=== PATIENT | male | born 1990 ===

== ENCOUNTER 2017-10-30 18:59 | Emergency (ER) | payer MEDICAID, OTHER ==
[2017-10-30 19:15] VITALS: BP 140/79; PULSE 81; RESP 16; TEMP 99.3; O2SAT 97
--- NOTE | 2017-10-30 21:15 | ED PDOC ---
Lower Extremity Pain/Injury Time Seen by Provider: 10/30/17 20:29 Chief Complaint (Nursing): Trauma Chief Complaint (Provider): Left foot pain History Per: Patient History/Exam Limitations: no limitations Onset/Duration Of Symptoms: Hrs Current Symptoms Are (Timing): Still Present Additional Complaint(s): 27yo male comes to ER for evaluation of left foot pain after he stepped on a nail. Patient states the nail punctured through his work boot and punctured his foot. He states his tetanus vaccination is not up to date. Patient denies any other medical complaints. Past Medical History Reviewed: Historical Data, Nursing Documentation, Vital Signs Vital Signs: Last Vital Signs Temp 99.3 F 10/30/17 19:11 Pulse 81 10/30/17 19:11 Resp 16 10/30/17 19:11 BP 140/79 10/30/17 19:11 Pulse Ox 97 10/30/17 19:11 - Medical History PMH: No Chronic Diseases - Surgical History Surgical History: No Surg Hx - Family History Family History: States: No Known Family Hx - Home Medications Home Medications: Ambulatory Orders Medication Instructions Recorded Amoxicillin/Clavulanate [Augmentin 1 tab PO BID #20 tab 10/30/17 875 MG-125 MG] - Allergies Allergies/Adverse Reactions: Allergies Allergy/AdvReac Type Severity Reaction Status Date / Time No Known Allergies Allergy Verified 10/30/17 19:11 Review of Systems Musculoskeletal: Positive for: Foot Pain (left foot pain; stepped on nail) Physical Exam - Reviewed Nursing Documentation Reviewed: Yes Vital Signs Reviewed: Yes - Physical Exam Appears: Positive for: Non-toxic, No Acute Distress Extremity: Positive for: Normal ROM, Other (pucture wound noted to sole of lateral left foot. No active bleeding noted.). Negative for: Swelling Neurologic/Psych: Positive for: Alert, Oriented - ECG O2 Sat by Pulse Oximetry: 97 (RA) Pulse Ox Interpretation: Normal Medical Decision Making Medical Decision Making: Impression: Left foot pain s/p stepping on nail Plan: -- Adacel 0.5ml IM -- XR left foot x-ray without acute fracture or dislocation. Scribe Attestation: Documented by Patsy Sorenson acting as a scribe for KRISTIN Shook Provider Attestation: All medical record entries made by the Scribe were at my direction and personally dictated by me. I have reviewed the chart and agree that the record accurately reflects my personal performance of the history, physical exam, medical decision making, and the department course for this patient. I have also personally directed, reviewed, and agree with the discharge instructions and disposition. Disposition - Clinical Impression Clinical Impression: Puncture wound, Tetanus toxoid vaccination administered at current visit - Patient ED Disposition Is Patient to be Admitted: No Counseled Patient/Family Regarding: Diagnosis, Need For Followup, Rx Given - Disposition Disposition: Routine/Home Disposition Time: 21:48 Condition: GOOD Prescriptions: Amoxicillin/Clavulanate [Augmentin 875 MG-125 MG] 1 tab PO BID #20 tab Instructions: Puncture Wound (ED) Forms: [employer] (Emirati)
--- NOTE | 2017-10-31 11:22 | RAD ---
PROCEDURE: Left Foot Radiographs. HISTORY: nail in lateral left foot COMPARISON: None. FINDINGS: BONES: Bone alignment and mineralization are normal. There is no acute displaced fracture or bone destruction. JOINTS: Normal. SOFT TISSUES: Normal. OTHER FINDINGS: None. IMPRESSION: No acute fracture or dislocation. No radiopaque foreign body
== END 2017-10-30 21:57 | disposition home or self-care (01) ==
LOC: H.ER 18:59
DX: S91.331A Puncture wound without foreign body, right foot, initial encounter (principal); W45.0XXA Nail entering through skin, initial encounter; Y99.0 Civilian activity done for income or pay

== ENCOUNTER 2018-09-10 11:52 | Emergency (ER) | payer MEDICAID ==
[2018-09-10 12:09] VITALS: RESP 18; O2SAT 99
--- NOTE | 2018-09-10 13:19 | ED PDOC ---
HPI: Back Time Seen by Provider: 09/10/18 12:12 Chief Complaint (Nursing): Back Pain Chief Complaint (Provider): Back pain History Per: Patient History/Exam Limitations: no limitations Onset/Duration Of Symptoms: Other (since September 02 ) Current Symptoms Are (Timing): Still Present Exacerbating Factor(s): Movement Additional Complaint(s): 28 year old male presents to the ED for an evaluation of left sided mid-back pain since September 02. Patient states at that time, he was participating in an [employer] tournament. Currently, his symptoms worsen with movement and deep inspirations. Patient feels short of breath secondary to pain and the pain has gradually worsened since onset; he describes the pain as if he was being punched in the back. He rates the pain 8/10. Patient took Ibuprofen 800mg last night without any relief in symptoms and reports no medicine was taken today. Otherwise, patient denies fever, saddle anesthesia, incontinence, IV drug abuse, nausea, vomiting, abdominal pain, chest pain, headache, dizziness, urinary symptoms, hematuria, falls, trauma, or history of back injury/surgeries. PMD: Dr. Navas Past Medical History Reviewed: Historical Data, Nursing Documentation, Vital Signs Vital Signs: Last Vital Signs Temp 97.0 F L 09/10/18 12:06 Pulse 67 09/10/18 12:06 Resp 18 09/10/18 12:06 BP 132/65 09/10/18 12:06 Pulse Ox 99 09/10/18 12:06 - Medical History PMH: No Chronic Diseases - Surgical History Other surgeries: right labrum repair - Family History Family History: States: Unknown Family Hx - Social History Alcohol: Social Drugs: Cannabis (every other day) - Home Medications Home Medications: Ambulatory Orders Medication Instructions Recorded Amoxicillin/Clavulanate [Augmentin 1 tab PO BID #20 tab 10/30/17 875 MG-125 MG] Cyclobenzaprine [Cyclobenzaprine 10 mg PO Q8 PRN #12 tab 09/10/18 HCl] RX: Naproxen 500 mg PO BID PRN #20 tab 09/10/18 - Allergies Allergies/Adverse Reactions: Allergies Allergy/AdvReac Type Severity Reaction Status Date / Time No Known Allergies Allergy Verified 10/30/17 19:11 Review of Systems ROS Statement: Except As Marked, All Systems Reviewed And Found Negative Constitutional: Negative for: Fever Cardiovascular: Negative for: Chest Pain Respiratory: Negative for: Cough Gastrointestinal: Negative for: Nausea, Vomiting, Abdominal Pain, Diarrhea Genitourinary Male: Negative for: Dysuria, Frequency, Incontinence, Hematuria Musculoskeletal: Positive for: Back Pain Neurological: Negative for: Headache, Dizziness Physical Exam - Reviewed Nursing Documentation Reviewed: Yes Vital Signs Reviewed: Yes - Physical Exam Comments: GENERAL APPEARANCE: Patient is awake, alert, oriented x 3, in no acute distress, uncomfortable appearing. SKIN: Warm, dry; (-) cyanosis. ENMT: Mucous membranes moist. Airway patent, (-) stridor. NECK: Supple, FROM (-) tenderness, (-) stiffness, (-) lymphadenopathy. CHEST AND RESPIRATORY: (-) rales, (-) rhonchi, (-) wheezes; breath sounds equal bilaterally. Respirations even and nonlabored. HEART AND CARDIOVASCULAR: (-) irregularity ABDOMEN AND GI: Soft; (-) tenderness (-) distention (-) guarding (-) palpable mass. BACK: (+) left lower parathoracic tenderness, questionable left CVA tenderness (-) direct bony tenderness, (-) deformity. Straight leg raise (-) bilaterally. EXTREMITIES: (-) deformity. Distal pulses good bilaterally. NEURO AND PSYCH: Mental status as above. Intact sensation bilaterally; normal strength in extension of the knees, plantar and dorsiflexion of the toes. Gait: steady. Speech: clear. (-) facial asymmetry. - Laboratory Results Urine dip results: Positive for: Leukocyte Esterase (trace). Negative for: Blood, Nitrate, Ketones, Glucose, Bilirubin, Protein - ECG O2 Sat by Pulse Oximetry: 99 (RA) Pulse Ox Interpretation: Normal Medical Decision Making Medical Decision Making: Time: 1255 Initial impression: acute back pain, probable muscle strain Initial plan: ED urine dipstick Chest XR two views Flexeril 10mg PO(not driving home) Toradol 30mg IM Reevaluation 1350 CXR reviewed, radiology report follows Date of service: 09/10/2018 HISTORY: SOB, left parathoracic pain COMPARISON: 10/22/2008 TECHNIQUE: Chest PA and lateral FINDINGS: PLEURA: No significant pleural effusion identified. No pneumothorax apparent. CARDIOVASCULAR: No aortic atherosclerotic calcification present. Normal cardiac size. No pulmonary vascular congestion. OSSEOUS STRUCTURES: No significant abnormalities. VISUALIZED UPPER ABDOMEN: Normal. OTHER FINDINGS: None. IMPRESSION: No active disease. No significant interval change compared to the prior examination(s). 1420 Udip reviewed. U/A and U/C ordered. 1530 U/A reviewed (-) nitrate (-) leukocytes On re-evaluation, patient reports improvement of symptoms. On exam, patient remains AAOx3, in no acute distress. Lungs clear to auscultation, cardiac RRR, abdomen soft, non-tender, repeat neuro exam shows no focal findings. Gait steady. Vitals stable. Lab/Diagnostic results d/w the patient in great detail. Diagnosis of acute back pain, probable muscle strain/spasm d/w the patient. Based on history, exam and diagnostic results, plan will be for outpatient follow up. Patient instructed to follow-up with pmd / referral provided / the clinic in 1- 2 days without fail. Advised to take medication as prescribed. Return to the emergency room at any time for any new or worsening symptoms. Patient states he fully agrees with and understands discharge instructions. States that he agrees with the plan and disposition. Verbalized and repeated discharge instructions and plan. I have given the patient opportunity to ask any additional questions. Scribe Attestation: Documented by Jaimie Rodriguez, acting as a scribe for Corrie Tam PA-C. Provider Scribe Attestation: All medical record entries made by the Scribe were at my direction and personally dictated by me. I have reviewed the chart and agree that the record accurately reflects my personal performance of the history, physical exam, medical decision making, and the department course for this patient. I have also personally directed, reviewed, and agree with the discharge instructions and disposition. Disposition - Clinical Impression Clinical Impression: Upper back strain, Mid back pain, Muscle spasm of back - Patient ED Disposition Is Patient to be Admitted: No Counseled Patient/Family Regarding: Studies Performed, Diagnosis, Need For Followup, Rx Given - Disposition Referrals: Chandra Navas MD [Family Provider] - Mendez Hoffmann III, MD [Staff Provider] - Disposition: Routine/Home Disposition Time: 15:30 Condition: STABLE Additional Instructions: The emergency medical care you received today was directed at your acute symptoms. If you were prescribed any medication, please fill it and take as directed. It may take several days for your symptoms to resolve. Return to the Emergency Department if your symptoms worsen, do not improve, or if you have any other problems. Please contact your doctor in 2 days for re-evaluation and follow up / or call one of the physicians/clinics you have been referred to that are listed on the Patient Visit Information form that is included in your discharge packet. Bring any paperwork you were given at discharge with you along with any medications you are taking to your follow up visit. Our treatment cannot replace ongoing medical care by a primary care provider (PCP) outside of the emergency department. Prescriptions: Cyclobenzaprine [Cyclobenzaprine HCl] 10 mg PO Q8 PRN #12 tab PRN Reason: Muscle Spasm RX: Naproxen 500 mg PO BID PRN #20 tab PRN Reason: Pain, Moderate (4-7) Instructions: Muscle Strain (DC), Upper Back Pain, Back Exercises, Muscle Spasms (DC), Back Precautions Forms: [employer] (Czech), [facility] ED School/Work Excuse Print Language: MONGOLIAN - POA Present On Arrival: None Results - Lab Results Lab Results: 09/10/18 14:54 Urine Color Yellow Urine Clarity Clear Urine pH 6.0 Ur Specific [place] 1.017 Urine Protein Negative Urine Glucose (UA) Neg Urine Ketones Negative Urine Blood Negative Urine Nitrate Negative Urine Bilirubin Negative Urine Urobilinogen 0.2-1.0 Ur Leukocyte Esterase Neg Urine RBC (Auto) 2 Urine Microscopic WBC 6 H
--- NOTE | 2018-09-10 13:48 | RAD ---
Date of service: 09/10/2018 HISTORY: SOB, left parathoracic pain COMPARISON: 10/22/2008 TECHNIQUE: Chest PA and lateral FINDINGS: LUNGS: She PLEURA: No significant pleural effusion identified. No pneumothorax apparent. CARDIOVASCULAR: No aortic atherosclerotic calcification present. Normal cardiac size. No pulmonary vascular congestion. OSSEOUS STRUCTURES: No significant abnormalities. VISUALIZED UPPER ABDOMEN: Normal. OTHER FINDINGS: None. IMPRESSION: No active disease. No significant interval change compared to the prior examination(s).
[2018-09-10 15:09] LABS: URINE BILIRUBIN NEGATIVE (NEGATIVE); URINE BLOOD NEGATIVE (NEGATIVE); URINE CLARITY CLEAR (Clear); URINE COLOR YELLOW (YELLOW); URINE GLUCOSE (UA) NEG (NEGATIVE); URINE LEUKOCYTE ESTERASE NEG Leu/uL (Negative); URINE PROTEIN NEGATIVE (NEGATIVE); URINE UROBILINOGEN 0.2-1.0 mg/dL (0.2-1.0)
[2018-09-10 16:11] VITALS: BP 128/70; PULSE 70; TEMP 98.4
== END 2018-09-10 16:11 | disposition home or self-care (01) ==
LOC: H.ER 11:52
DX: M54.6 Pain in thoracic spine (principal); M62.830 Muscle spasm of back
CPT/HCPCS: 71046; 81003; 87086; 96372; 99283; J1885

== ENCOUNTER 2018-10-21 16:56 | Emergency (ER) | payer MEDICAID ==
[2018-10-21 17:07] VITALS: BP 138/79; PULSE 73; RESP 18; TEMP 98; O2SAT 98
--- NOTE | 2018-10-21 17:44 | ED PDOC ---
HPI: Eye Injury/Pain Time Seen by Provider: 10/21/18 17:12 Chief Complaint (Nursing): Eye Problem Chief Complaint (Provider): Eye Problem History Per: Patient History/Exam Limitations: no limitations Onset/Duration Of Symptoms: Mins (just prior to arrival) Current Symptoms Are (Timing): Still Present Injury To Eye?: Yes Severity: Moderate Associated Symptoms: Pain, Swelling. denies: Decreased Vision Additional Complaint(s): 28 year old male with no pertinent medical history presents to the ED for an evaluation of an eye injury that occurred just prior to arrival. Patient states that earlier today he took a line drive from a baseball, and was struck in the left eye area. Patient denies having loss of consciousness, visual changes, nausea, and vomiting. PMD: Chandra Navas MD Past Medical History Reviewed: Historical Data, Nursing Documentation, Vital Signs Vital Signs: Last Vital Signs Temp 98 F 10/21/18 17:04 Pulse 73 10/21/18 17:04 Resp 18 10/21/18 17:04 BP 138/79 10/21/18 17:04 Pulse Ox 98 10/21/18 17:04 ALESSANDRA Report Viewed: Yes - Medical History PMH: No Chronic Diseases - Surgical History Surgical History: No Surg Hx - Family History Family History: States: No Known Family Hx - Social History Current smoker - smoking cessation education provided: No Alcohol: None Drugs: Denies - Home Medications Home Medications: Ambulatory Orders Medication Instructions Recorded Amoxicillin/Clavulanate [Augmentin 1 tab PO BID #20 tab 10/30/17 875 MG-125 MG] Cyclobenzaprine [Cyclobenzaprine 10 mg PO Q8 PRN #12 tab 09/10/18 HCl] Naproxen 500 mg PO BID PRN #20 tab 09/10/18 - Allergies Allergies/Adverse Reactions: Allergies Allergy/AdvReac Type Severity Reaction Status Date / Time No Known Allergies Allergy Verified 10/21/18 17:07 Review of Systems ROS Statement: Except As Marked, All Systems Reviewed And Found Negative Eyes: Positive for: Pain (left eye struck with baseball). Negative for: Vision Change Gastrointestinal: Negative for: Nausea, Vomiting Neurological: Negative for: Other (loss of consciousness) Physical Exam - Reviewed Nursing Documentation Reviewed: Yes Vital Signs Reviewed: Yes - Physical Exam Appears: Positive for: Well, Non-toxic, No Acute Distress Head Exam: Positive for: NORMOCEPHALIC. Negative for: ATRAUMATIC (moderate and swelling to left periorbital area) Skin: Positive for: Normal Color, Warm, Dry Eye Exam: Positive for: EOMI (including upward gaze), PERRL. Negative for: Other (hyphema) Neurologic/Psych: Positive for: Alert, Oriented (3x) - ECG O2 Sat by Pulse Oximetry: 98 (RA) Pulse Ox Interpretation: Normal - CT Scan/US CT head Other Rad Studies (CT/US): Read By Radiologist, Radiology Report Reviewed (see MDM note) CT maxillofacial Other Rad Studies (CT/US): Read By Radiologist, Radiology Report Reviewed (see MDM note) Medical Decision Making Medical Decision Makin:12 Initial impression: 28 year old male with an eye injury. Initial plan: * CT head w/o contrast * CT maxillofcial w/o contrast * reevaluation 18:38 CT head read and reviewed by radiologist FINDINGS: BRAIN No acute intraparenchymal hemorrhage. No mass lesion. No CT evidence for acute territorial infarct. No midline shift or extra-axial collections. VENTRICLES: No hydrocephalus. ORBITS: There is marked soft tissue swelling and hematoma suspected about the left orbit and the globe and anterior aspect of the left zygomatic arch. SINUSES AND MASTOIDS: The paranasal sinuses and mastoid air cells are clear. BONES: No fracture. SOFT TISSUES: Unremarkable. IMPRESSION: No acute intracranial abnormality. Marked soft tissue swelling and hematoma suspected about the left orbit and globe and anterior aspect of the left zygomatic arch. Clinical correlation advised. 18:42 CT maxillofacial read and reviewed by radiologist FINDINGS: BONES: No acute fracture or aggressive appearing osseous lesion. The mandible is intact. SOFT TISSUES: There is marked soft tissue swelling and hematoma suspected about the left orbit and globe and left maxillary region and anterior aspect of the left zygomatic arch extending to the left nasal bone region. The globes themselves appear intact. SINUSES: Mild inflammatory changes ethmoid sinuses and maxillary sinuses. ORBITS: The orbits are normal. No retrobulbar hematoma or mass. IMPRESSION: No acute fracture. Marked soft tissue swelling about the left orbit and the lobe and left maxillary region extending to the anterior aspect of the left zygomatic arch. Inflammatory changes within the paranasal sinuses. Clinical correlation advised. Scribe Attestation: Documented byCorrie Kaur, acting as a scribe for Gaurav Baird Provider Scribe Attestation: All medical record entries made by the Scribe were at my direction and personally dictated by me. I have reviewed the chart and agree that the record accurately reflects my personal performance of the history, physical exam, medical decision making, and the department course for this patient. I have also personally directed, reviewed, and agree with the discharge instructions and disposition. Disposition - Clinical Impression Clinical Impression: Facial contusion, Head injury - Patient ED Disposition Is Patient to be Admitted: No - Disposition Referrals: [facility] [Outside] Je Coreas MD [Staff Provider] - Disposition: Routine/Home Disposition Time: 19:27 Condition: STABLE Additional Instructions: FOLLOW UP WITH YOUR DOCTOR OR DR. COREAS FOR FURTHER EVALUATION RETURN TO ED IMMEDIATELY IF SYMPTOMS WORSEN BRIONNA MONTALVO, thank you for letting us take care of you today. Your provider was Aung Castano MD and you were treated for EYE SWELLING. The emergency medical care you received today was directed at your acute symptoms. If you were prescribed any medication, please fill it and take as directed. It may take several days for your symptoms to resolve. Return to the Emergency Department if your symptoms worsen, do not improve, or if you have any other problems. Please contact your doctor or call one of the physicians/clinics you have been referred to that are listed on the Patient Visit Information form that is included in your discharge packet. Bring any paperwork you were given at discharge with you along with any medications you are taking to your follow up visit. Our treatment cannot replace ongoing medical care by a primary care provider outside of the emergency department. Thank you for allowing the [facility] team to be part of your care today. If you had an X-Ray or CT scan: A Radiologist will review the ED reading if any change in treatment is needed we will contact you. If you had a blood, urine, or wound culture: It will take several days for the results, if any change in treatment is needed we will contact you. If you had an STI test: It will take 48 hours for the results. Please call after 1 week if you have not heard back. Instructions: Closed Head Injury (DC) Forms: [employer] (Cypriot)
--- NOTE | 2018-10-22 11:00 | CT ---
Date of service: 10/21/2018 PROCEDURE: CT HEAD WITHOUT CONTRAST. HISTORY: trauma COMPARISON: None available. TECHNIQUE: Axial computed tomography images were obtained through the head/brain without intravenous contrast. Radiation dose: Total exam DLP = 1313.69 mGy-cm. This CT exam was performed using one or more of the following dose reduction techniques: Automated exposure control, adjustment of the mA and/or kV according to patient size, and/or use of iterative reconstruction technique. FINDINGS: Examination technically limited due to excessive image noise (quantum mottle). HEMORRHAGE: No intracranial hemorrhage. BRAIN: No mass effect or edema. No atrophy or chronic microvascular ischemic changes. VENTRICLES: Unremarkable. No hydrocephalus. CALVARIUM: Unremarkable. PARANASAL SINUSES: Mild chronic sphenoid and bilateral maxillary sinusitis. MASTOID AIR CELLS: Unremarkable as visualized. No inflammatory changes. OTHER FINDINGS: Soft tissue swelling over left side, extending to left inferior palpebrum. IMPRESSION: No intracranial mass, hemorrhage or evidence of acute infarct. Mild chronic paranasal sinusitis. Left facial soft tissue swelling as described. No additional abnormality. The preliminary findings for this examination were reported by [facility] at 6:38 p.m. on 10/21/2018. There is concurrence of this report with the preliminary findings.
--- NOTE | 2018-10-22 11:21 | CT ---
Date of service: 10/21/2018 PROCEDURE: CT MAXILLOFACIAL BONES WITHOUT CONTRAST HISTORY: trauma COMPARISON: Not available. TECHNIQUE: Contiguous axial CT images of the maxillofacial bones were obtained. Coronal and sagittal reformats were generated. Radiation dose: Total exam DLP = 764.36 mGy-cm. This CT exam was performed using one or more of the following dose reduction techniques: Automated exposure control, adjustment of the mA and/or kV according to patient size, and/or use of iterative reconstruction technique. FINDINGS: NASAL BONES: No evidence of fracture. ORBITS: Soft tissue swelling of left inferior palpebrum, preseptal only. No intraorbital hemorrhage. The globes are rounded and symmetric. PARANASAL SINUSES/ MASTOIDS: Chronic ethmoid, sphenoid and bilateral maxillary sinusitis. MAXILLA: Left pre malar soft tissue swelling extending over the zygomatic arch and to the left inferior palpebrum MANDIBLE/ TEMPOROMANDIBULAR JOINTS: Unremarkable. SKULL BASE: Unremarkable. TEMPORAL BONES: Middle ears and mastoid grossly unremarkable. OTHER FINDINGS: None. IMPRESSION: No acute fracture. Chronic paranasal sinusitis.. Extensive soft tissue swelling over the left zygomatic arch and malar eminence extending to involve the left inferior palpebrum. No intraorbital hemorrhage. The preliminary findings for this examination were reported by [facility] at 6:42 p.m. on 10/21/2018. There is concurrence of this report with the preliminary findings.
== END 2018-10-21 19:31 | disposition home or self-care (01) ==
LOC: H.ER 16:56
DX: S05.92XA Unspecified injury of left eye and orbit, initial encounter (principal); S00.83XA Contusion of other part of head, initial encounter; W21.03XA Struck by baseball, initial encounter; Y93.64 Activity, baseball